=== PATIENT | female | born 1990 | race Caucasian/White ===

== ENCOUNTER 2016-10-17 00:17 | Emergency (ER) | payer BC | END 2016-10-17 01:35 | disposition home or self-care (01) | LOC: D.ER 00:17 | DX: S90.31XA Contusion of right foot, initial encounter (principal); X58.XXXA Exposure to other specified factors, initial encounter; Y93.89 Activity, other specified; Y92.89 Other specified places as the place of occurrence of the external cause; F60.3 Borderline personality disorder; F17.200 Nicotine dependence, unspecified, uncomplicated ==

== ENCOUNTER 2017-11-15 17:37 | Emergency (ER) | payer BC ==
[~2017-11-15] VITALS: Ht 165.1 cm; Wt 172.4 kg
[2017-11-15 18:00] VITALS: Ht 165.1 cm; Wt 172.4 kg
[2017-11-15 18:18] LABS: BASOPHILS 0.4 % (0-2); EOSINOPHILS 1.9 % (0-7); HEMATOCRIT 41.1 % (36.0-48.0); HEMOGLOBIN 14.3 g/dL (12-16); IMMATURE GRANULOCYTES 0.5 % (0-5); LYMPHOCYTES 13.7 % (15-50); MCH 31.4 pg (26.0-34.0); MCHC 34.8 g/dL (31.0-37.0); MCV 90.1 fL (80.0-100.0); MEAN PLATELET VOLUME 9.2 fL (7.4-10.4); MONOCYTES 4.9 % (2-11); NEUTROPHILS 78.6 % (40-80); PLATELET COUNT 267 10x3/uL (130-400); RBC 4.56 10x6/uL (4.00-5.40); RDW 13.1 % (11.5-14.5); WBC 10.6 10x3/uL (4.8-10.8)
[2017-11-15 18:36] LABS: ALBUMIN 3.3 g/dL (3.4-5.0); ANION GAP 16.2 mmol/L (8-16); BILIRUBIN - TOTAL 0.6 mg/dL (0.2-1.3); CALCIUM 8.6 mg/dL (8.5-10.1); CARBON DIOXIDE 23.6 mmol/L (21.0-32.0); CREATININE - SERUM 1.2 mg/dL (0.6-1.3); POTASSIUM - SERUM 3.8 mmol/L (3.5-5.1); PROTEIN - SERUM 7.4 g/dL (6.4-8.2)
[2017-11-15 18:52] LABS: APPEARANCE HAZY (CLEAR); BILIRUBIN NEGATIVE (NEGATIVE); COLOR YELLOW (YELLOW); EPITHELIAL CELLS 0-5 /hpf (0-5); GLUCOSE NEGATIVE (NEGATIVE); KETONE NEGATIVE (NEGATIVE); NITRITE NEGATIVE (NEGATIVE); PROTEIN 1+ mg/dL (NEGATIVE); RED CELLS - URINE >50 /hpf (0-5); SPECIFIC GRAVITY 1.015 (1.005-1.020); UROBILINOGEN NORMAL (NORMAL); WHITE CELLS - URINE 0-5 /hpf (0-5)
[2017-11-15 18:53] LABS: BACTERIA MODERATE /hpf (NONE SEEN)
[2017-11-15] MEDS ORDERED: ZOFRAN4 MG PO (19:51)
[2017-11-15] MEDS ORDERED: LEVAQUIN750 MG PO (19:51)
[2017-11-15] MEDS ORDERED: PROAIR HFA8.5 GM INH (19:51)
[2017-11-15 20:28] VITALS: BP 146/92
== END 2017-11-15 20:28 | disposition home or self-care (01) ==
LOC: D.ER 17:37
PROVIDERS: Family Medicine
DX: J40 Bronchitis, not specified as acute or chronic (principal); R11.10 Vomiting, unspecified; R19.7 Diarrhea, unspecified

== ENCOUNTER 2018-01-10 21:06 | Emergency (ER) | payer BC ==
[~2018-01-10] VITALS: Ht 165.1 cm; Wt 170.1 kg
[~2018-01-10 21:06] MED LIST: LEVAQUIN750 MG PO; PROAIR HFA8.5 GM INH; ZOFRAN4 MG PO
[2018-01-10 21:17] VITALS: Ht 165.1 cm; Wt 170.1 kg
[2018-01-11] MEDS ORDERED: TORADOL10 MG PO (00:28)
[2018-01-11 00:47] VITALS: BP 138/89
== END 2018-01-11 00:47 | disposition home or self-care (01) ==
LOC: D.ER 21:06
DX: S00.03XA Contusion of scalp, initial encounter (principal); W22.8XXA Striking against or struck by other objects, initial encounter; Y93.89 Activity, other specified; Y92.89 Other specified places as the place of occurrence of the external cause; F17.200 Nicotine dependence, unspecified, uncomplicated

== ENCOUNTER 2018-12-08 03:03 | Emergency (ER) | payer BC ==
[~2018-12-08] VITALS: Ht 165.1 cm; Wt 185.9 kg
[~2018-12-08 03:03] MED LIST changes: +TORADOL10 MG PO
[2018-12-08 03:09] VITALS: Ht 165.1 cm; Wt 185.9 kg
[2018-12-08] MEDS ORDERED: ZOFRAN ODT4 MG/UDTAB PO (04:21)
[2018-12-08 04:25] VITALS: BP 135/75
== END 2018-12-08 04:26 | disposition home or self-care (01) ==
LOC: D.ER 03:03
DX: R11.0 Nausea (principal); R53.81 Other malaise; F17.210 Nicotine dependence, cigarettes, uncomplicated

== ENCOUNTER 2019-07-04 01:36 | Emergency (ER) | payer SELFPAY ==
[~2019-07-04] VITALS: Ht 165.1 cm; Wt 188.6 kg
[~2019-07-04 01:36] MED LIST changes: +ZOFRAN ODT4 MG/UDTAB PO
[2019-07-04 01:44] VITALS: Ht 165.1 cm; Wt 188.6 kg
[2019-07-04] MEDS ORDERED: LIPITOR40 MG PO (01:46)
[2019-07-04] MEDS ORDERED: BAYER CHEWABLE81 MG PO (01:46)
[2019-07-04] MEDS ORDERED: EFFEXOR75 MG PO (01:46)
[2019-07-04] MEDS ORDERED: COREG 3.1253.125 MG PO (01:46)
[2019-07-04 02:10] LABS: BASOPHILS 0.7 % (0-2); EOSINOPHILS 4.2 % (0-7); HEMOGLOBIN 13.5 g/dL (12-16); IMMATURE GRANULOCYTES 0.3 % (0-5); LYMPHOCYTES 39.3 % (15-50); MCH 30.5 pg (26.0-34.0); MCHC 32.9 g/dL (31.0-37.0); MCV 92.8 fL (80.0-100.0); MEAN PLATELET VOLUME 8.9 fL (7.4-10.4); MONOCYTES 6.9 % (2-11); NEUTROPHILS 48.6 % (40-80); PLATELET COUNT 298 10x3/uL (130-400); RBC 4.42 10x6/uL (4.00-5.40); RDW 13.3 % (11.5-14.5)
[2019-07-04 02:21] LABS: APTT 24.6 SECONDS (22.8-39.4); INR 0.88 (0.85-1.17)
[2019-07-04 02:22] LABS: D-DIMER-QUANTITATIVE 0.3 ug/mLFEU (0.20-0.54)
[2019-07-04 02:25] LABS: CALC OSMOLALITY 265 mosm/kg (275-300); CALCIUM 8.9 mg/dL (8.5-10.1); CARBON DIOXIDE 24.6 mmol/L (21.0-32.0); CHLORIDE - SERUM 101 mmol/L (98-107); CREATININE - SERUM 0.9 mg/dL (0.6-1.3); GLUCOSE 117 mg/dL (74-106); POTASSIUM - SERUM 4.6 mmol/L (3.5-5.1); SODIUM 133 mmol/L (136-145); UREA NITROGEN 9 mg/dL (7-18); eGFR NON AFRICAN AMERICAN 78 mL/min (90-120)
[2019-07-04 02:26] LABS: HCG SERUM NEGATIVE (NEGATIVE)
[2019-07-04 02:30] LABS: ALBUMIN 3.1 g/dL (3.4-5.0); ALKALINE PHOSPHATASE 72 U/L (30-120); ALT (SGPT) 36 U/L (10-68); PROTEIN - SERUM 6.7 g/dL (6.4-8.2)
--- NOTE | 2019-07-04 03:43 | NUR ---
DOCTOR VICTORIA NOTIFIED OF ASSESSMENT FINDINGS. DOCTOR VICTORIA STATES THAT PATIENT A LOW RISK PER ASSESSMENT AND STEATES TO GIVE EDUCATION AND RECOURSES AT TIME OF DISCHARGE.
[2019-07-04 03:56] VITALS: BP 149/92
== END 2019-07-04 03:57 | disposition home or self-care (01) ==
LOC: D.ER 01:36
PROVIDERS: Family Medicine
DX: M79.652 Pain in left thigh (principal); G43.909 Migraine, unspecified, not intractable, without status migrainosus; I10 Essential (primary) hypertension; E78.5 Hyperlipidemia, unspecified; R42 Dizziness and giddiness; Z72.0 Tobacco use

== ENCOUNTER 2019-08-08 19:51 | Emergency (ER) | payer SELFPAY ==
[~2019-08-08] VITALS: Ht 165.1 cm; Wt 190.9 kg
[~2019-08-08 19:51] MED LIST changes: +BAYER CHEWABLE81 MG PO; +COREG 3.1253.125 MG PO; +EFFEXOR75 MG PO; +LIPITOR40 MG PO
[2019-08-08 19:56] VITALS: Ht 165.1 cm; Wt 190.9 kg
[2019-08-08 20:43] LABS: BASOPHILS 0.5 % (0-2); EOSINOPHILS 3.9 % (0-7); HEMOGLOBIN 13.4 g/dL (12-16); IMMATURE GRANULOCYTES 0.1 % (0-5); LYMPHOCYTES 34.5 % (15-50); MCH 30.7 pg (26.0-34.0); MCHC 33.5 g/dL (31.0-37.0); MCV 91.7 fL (80.0-100.0); MEAN PLATELET VOLUME 8.9 fL (7.4-10.4); MONOCYTES 6.2 % (2-11); NEUTROPHILS 54.8 % (40-80); PLATELET COUNT 303 10x3/uL (130-400); RBC 4.36 10x6/uL (4.00-5.40); RDW 13.1 % (11.5-14.5); WBC 7.7 10x3/uL (4.8-10.8)
[2019-08-08 20:56] LABS: APTT 35.4 SECONDS (22.8-39.4); INR 0.97 (0.85-1.17); PROTIME 12.8 SECONDS (11.6-15.0)
[2019-08-08 20:58] LABS: CALC OSMOLALITY 272 mosm/kg (275-300); CALCIUM 8.7 mg/dL (8.5-10.1); CARBON DIOXIDE 25.7 mmol/L (21.0-32.0); CHLORIDE - SERUM 100 mmol/L (98-107); CREATININE - SERUM 1.2 mg/dL (0.6-1.3); POTASSIUM - SERUM 3.6 mmol/L (3.5-5.1); SODIUM 135 mmol/L (136-145); UREA NITROGEN 11 mg/dL (7-18); eGFR NON AFRICAN AMERICAN 56 mL/min (90-120)
[2019-08-08 21:00] LABS: GLUCOSE 167 mg/dL (74-106)
[2019-08-08 21:05] LABS: ALBUMIN 3.3 g/dL (3.4-5.0); ALKALINE PHOSPHATASE 60 U/L (30-120); ALT (SGPT) 43 U/L (10-68); BILIRUBIN - TOTAL 0.32 mg/dL (0.2-1.3); CKMB 0.7 U/L (0.0-3.6); CREATINE KINASE 126 UL (21-215); MAGNESIUM - SERUM 1.7 mg/dL (1.8-2.4); PROTEIN - SERUM 6.8 g/dL (6.4-8.2)
[2019-08-08 21:07] LABS: TROPONIN-I < 0.017 ng/mL (0.000-0.060)
[2019-08-08 22:40] VITALS: BP 136/65
== END 2019-08-08 22:40 | disposition home or self-care (01) ==
LOC: D.ER 19:51
PROVIDERS: Family Medicine
DX: I10 Essential (primary) hypertension (principal); R73.9 Hyperglycemia, unspecified; E78.5 Hyperlipidemia, unspecified; Z72.0 Tobacco use; R07.9 Chest pain, unspecified; M54.9 Dorsalgia, unspecified; R68.84 Jaw pain

== ENCOUNTER 2019-11-22 23:10 | Emergency (ER) | payer SELFPAY ==
[~2019-11-22] VITALS: Ht 165.1 cm; Wt 190.9 kg
[2019-11-22 23:47] VITALS: Ht 165.1 cm; Wt 190.9 kg
[2019-11-23 00:19] LABS: ANION GAP 9.8 mmol/L (8-16); BASOPHILS 0.8 % (0-2); CALCIUM 9.3 mg/dL (8.5-10.1); CARBON DIOXIDE 28.2 mmol/L (21.0-32.0); CREATININE - SERUM 1.1 mg/dL (0.6-1.3); EOSINOPHILS 4.4 % (0-7); HEMATOCRIT 40.3 % (36.0-48.0); HEMOGLOBIN 13.5 g/dL (12-16); IMMATURE GRANULOCYTES 0.4 % (0-5); LYMPHOCYTES 34.7 % (15-50); MCH 30.2 pg (26.0-34.0); MCHC 33.5 g/dL (31.0-37.0); MCV 90.2 fL (80.0-100.0); MONOCYTES 6.5 % (2-11); NEUTROPHILS 53.2 % (40-80); PLATELET COUNT 282 10x3/uL (130-400); RBC 4.47 10x6/uL (4.00-5.40); RDW 13.3 % (11.5-14.5); WBC 7.8 10x3/uL (4.8-10.8)
[2019-11-23 00:25] LABS: ALBUMIN 3.4 g/dL (3.4-5.0); BILIRUBIN - TOTAL 0.3 mg/dL (0.2-1.3); PROTEIN - SERUM 6.9 g/dL (6.4-8.2)
[2019-11-23 00:54] VITALS: BP 151/89
== END 2019-11-23 00:54 | disposition home or self-care (01) ==
LOC: D.ER 23:10
PROVIDERS: Family Medicine
DX: I10 Essential (primary) hypertension (principal); R51 Headache; E78.5 Hyperlipidemia, unspecified; Z72.0 Tobacco use